=== PATIENT | female | born 1955 | race Caucasian/White ===

== ENCOUNTER 2020-08-01 14:44 | Outpatient (CLI) | payer OTHER | END 2020-08-01 16:04 | disposition home or self-care (01) | LOC: OFIC 805 14:44 | PROVIDERS: ATTEND Otolaryngology Otology & Neurotology | DX: H81.02 Meniere's disease, left ear (principal) ==

== ENCOUNTER 2020-08-25 07:37 | Outpatient (CLI) | payer OTHER | END 2020-08-25 07:44 | disposition home or self-care (01) | LOC: LAB 07:37 | PROVIDERS: ATTEND Obstetrics & Gynecology | DX: E03.8 Other specified hypothyroidism (principal); N95.2 Postmenopausal atrophic vaginitis; E55.9 Vitamin D deficiency, unspecified; R73.09 Other abnormal glucose; E78.89 Other lipoprotein metabolism disorders; D64.89 Other specified anemias; N39.0 Urinary tract infection, site not specified; R97.8 Other abnormal tumor markers; E72.11 Homocystinuria; R19.09 Other intra-abdominal and pelvic swelling, mass and lump ==